=== PATIENT | female | born 1995 | race Caucasian/White ===

== ENCOUNTER 2018-09-04 15:08 | Inpatient (IN) | payer MEDICAID ==
[~2018-09-04] VITALS: Ht 160 cm; Wt 86.6 kg
[2018-09-04 15:20] VITALS: BP 119/58; PULSE 72; RESP 18; Ht 160 cm; Wt 86.6 kg
[2018-09-04] MEDS ORDERED: PREN-99 PO (15:23)
[2018-09-04] MEDS ORDERED: TERBUTALINE 1 ML ONE (15:44)
[2018-09-04] MEDS ORDERED: TERBUTALINE 1 MG/ML INJ SC STA (15:46)
[2018-09-04] MEDS: LACTATED RINGER'S 1,000 ML IV SCH ×2 (16:03→21:40)
[2018-09-04] MEDS ORDERED: TERBUTALINE 1 MG/ML INJ SC ONE (17:30)
--- NOTE | 2018-09-04 18:33 | HP ---
Date/Time of Note Date/Time of Note DATE: 09/04/18 TIME: 18:31 OB - History Hx of Present Free Text/Dictation 23-year-old female 3 para 1 Ab1 at 34 weeks and 1 day gestation admitted complaining of uterine contractions started in a.m. Estimated Due Date: Oct 15, 2018 : 3 Para: 1 Spontaneous : 1 Care: Good Care Ultrasounds: Normal mid trimester US Obstetrical Complications: None Medical Complications: None Past Family/Social History * Past Medical, Surgical, Family and Obstetric Histories reviewed from chart. OB Admission Exam Vital Signs Vital Signs Vital Signs Date Temp Pulse Resp B/P (MAP) Pulse Ox O2 O2 Flow FiO2 Time Delivery Rate 09/04/18 98.5 72 18 119/58 Room Air 15:20 (78) Physical Exam HEENT: WNL Heart: Rhythm Normal Lungs: Clear, Equal Abdomen: WNL Extremities: Normal Reflexes: Normal Cervical Dilatation: Fingertip Effacement: 0% Station: -3 Membranes: Intact Heart Rate: 140's Accelerations: Accelerations Present Decelerations: No Decelerations Varibility: Marked Contractions on Admission: < 5 Minutes Apart Date/Time Contractions Began: A.m. 09/04/2018 Frequency of Contractions: Every 3-5 minutes Duration: Over 1 minute Intensity: Mild Last 72 hours Lab Results CBC & BMP 09/04/18 15:55 OB Assessment/Plan Reason for admission: labor Other Assessment: contractions at 34 weeks and 1 Other plan: Start nifedipine and continue to observe patient Steroids will be provided TIA VELOZ MD Sep 04, 2018 18:33
[2018-09-04] MEDS ORDERED: LACTATED RINGER'S 1,000 ML IV SCH (18:44)
[2018-09-04] MEDS ORDERED: BETAMET NA PHOS/AC(6 MG/ML) 2 ML INJ SYG IM ONE (19:00)
[2018-09-04] MEDS ORDERED: DEXAMETHASONE 4 MG/ML 5 ML INJ IM SCH (19:00)
[2018-09-04] MEDS: NIFEdipine 10 MG CAP PO SCH (19:04)
[2018-09-04] MEDS ORDERED: ACETAMINOPHEN 325 MG TAB PO PRN (19:30)
[2018-09-04] MEDS ORDERED: AL HYDROX/MG HYDROX/SIMETH 30 ML CUP PO PRN (19:30)
--- NOTE | 2018-09-04 21:27 | TRIAGE ---
OB Triage Datetime Report Generated by CPN: 09/04/2018 21:27 Datetime: 09/04/2018 20:53 Monitor Mode: External Quality: Mild Pattern: Normal: <= 5 Contractions in 10 Minutes Resting Tone [place]: Relaxed Heart Rate FHR Baseline Rate: 150 Monitor Mode: External US FHR Baseline Changes: No Baseline Change Variability: Moderate 6-25 bpm Accelerations: 15X15 Decelerations: Variable Category: Category II Datetime: 09/04/2018 20:08 Stage of : OB Triage Vaginal Exam Dilatation (cms): 0.0 Effacement (%): 30 Station: -2 Exam By: Peter Geiger Membrane Status: Intact Vaginal Bleeding: None Cervix, Consistency: Moderate Cervix, Position: Posterior Datetime: 09/04/2018 19:54 Stage of : OB Triage Heart Rate FHR Baseline Rate: 150 Monitor Mode: External US Datetime: 09/04/2018 19:30 Stage of : OB Triage Maternal Assessment Level of Consciousness: Fully Conscious Headache: Denies Blurred Vision: No Nausea/Vomiting: Denies RUQ Epigastric Pain: Denies Facial Edema: None Labor Evaluation Frequency: 2-10 Monitor Mode: External Duration (sec)2399: 20-60 Quality: Mild Pattern: Normal: <= 5 Contractions in 10 Minutes Resting Tone [place]: Relaxed Heart Rate FHR Baseline Rate: 140 Monitor Mode: External US FHR Baseline Changes: No Baseline Change Variability: Moderate 6-25 bpm Accelerations: 15X15 Decelerations: None Category: Category I Pain Assessment Pain Scale: 4 Pain Presence: Intermittent Pain Type: Cramping Pain Location: Abdomen Datetime: 09/04/2018 18:42 Stage of : OB Triage Datetime: 09/04/2018 17:12 Labor Evaluation Frequency: 5-6 Monitor Mode: External Quality: Mild Pattern: Normal: <= 5 Contractions in 10 Minutes Resting Tone [place]: Relaxed Heart Rate FHR Baseline Rate: 125 Monitor Mode: External US Variability: Moderate 6-25 bpm Accelerations: 10X10 Decelerations: None Category: Category I Pain Assessment Pain Scale: 3 Pain Presence: Intermittent Pain Type: Cramping Pain Location: Perineum Pain Goal: 3 Pain Relief Measures: Comfort Measures Datetime: 09/04/2018 16:09 Labor Evaluation Frequency: 5-6 Monitor Mode: External Duration (sec)2399: 50-60 Quality: Mild Pattern: Normal: <= 5 Contractions in 10 Minutes Resting Tone [place]: Relaxed Heart Rate FHR Baseline Rate: 125 Monitor Mode: External US Variability: Moderate 6-25 bpm Accelerations: 10X10 Decelerations: None Category: Category I Pain Assessment Pain Scale: 5 Pain Presence: Intermittent Pain Type: Cramping Pain Goal: 3 Pain Relief Measures: Comfort Measures Datetime: 09/04/2018 15:27 Stage of : OB Triage Assessment Type: Triage Maternal Assessment Level of Consciousness: Fully Conscious DTR's/Clonus: DTRs 2+; No Clonus Headache: Denies Blurred Vision: No Respiratory Effort: Unlabored; Regular Rhythm; Equal Expansion Breath Sounds, Left: Clear and Equal Breath Sounds, Right: Clear and Equal Nausea/Vomiting: Denies RUQ Epigastric Pain: Denies Lower Extremities Edema: None Degree: None Upper Extremities Edema: None Degree: None Facial Edema: None Temperature Route: Oral Fall Risk Assessment History of Falling: (0) No Secondary Diagnosis: (0) No Ambulatory Aid: (0) Bedrest/Nurse Assist IV Therapy: (0) No Gait: (0) Normal/Bedrest/Immobile Mental Status: (0) Oriented to Own Ability Fall Score: 0 Fall Risk Score Definition: No Risk: No action required Labor Evaluation Frequency: x3 Monitor Mode: External Duration (sec)2399: 40-60 Quality: Mild Resting Tone [place]: Relaxed Heart Rate FHR Baseline Rate: 130 Monitor Mode: External US FHR Baseline Changes: No Baseline Change Variability: Moderate 6-25 bpm Accelerations: 15X15 Decelerations: None Category: Category I Pain Assessment Pain Scale: 7 Pain Presence: Intermittent Pain Type: Cramping Pain Location: Abdomen Datetime: 09/04/2018 15:26 EGA: 34.1 Datetime: 09/04/2018 15:24 Time of Arrival: 09/04/2018 15:00 Arrived By: Ambulatory Arrived From: Dr. Marcelino Chief Complaint: UCs from 0800 am Movement: Present Contractions: Regular Time Contractions Began: 09/04/2018 08:00 Contractions: 2-4/hour Rupture of Membranes: Denies Vaginal Bleeding: None Vaginal Discharge: Denies Recent Sexual Intercouse: Denies Abdominal Trauma: Not Applicable Patient Complaints: Contractions; Cramping Time Provider Notified: 09/04/2018 15:40 Provider Notified: Dr Poon Initial Plan: HERNANDEZ
[2018-09-04] MEDS: DEXAMETHASONE 4 MG/ML 5 ML INJ IM SCH (23:02)
[2018-09-05] MEDS: NIFEdipine 10 MG CAP PO SCH ×5 (00:46→23:29)
[2018-09-05] MEDS: LACTATED RINGER'S 1,000 ML IV SCH ×3 (05:44→22:59)
[2018-09-05] MEDS: PRENATAL VITAMIN PO SCH (10:35)
[2018-09-05] MEDS: FERROUS SULFATE (EC) 325 MG TAB PO SCH (10:35)
[2018-09-05] MEDS: DEXAMETHASONE 4 MG/ML 5 ML INJ IM SCH ×2 (11:29→23:01)
--- NOTE | 2018-09-05 15:40 | DS ---
Date/Time of Note Date/Time of Note DATE: 09/05/18 TIME: 15:38 Obstetrical Discharge Record Final Diagnosis Final Diagnosis: not delivered Other Final Diagnosis contractions at 34+ week Complications Tocolytics: Terbutaline, Other (Nifedipine) Condition on Discharge Physical Assessment Last Vitals: See nurse's note Voiding: Yes Bowel Movement: Yes Breast: Soft, non-tender, Filling Fundus: Other () Abdomen and Incision: Abdomen is gravid fundal height is 34 heart tones reactive On electronic monitoring no uterine contractions seen Calf Tenderness: No Patient Condition: Good (Patient is awaiting completion of steroid doses and will be discharged following completion) TIA VELOZ MD Sep 05, 2018 15:40
--- NOTE | 2018-09-05 15:42 | PD.PPDC ---
[employer] Discharge Instruction Provider Information Physician Information 23-year-old female with admitted for contractions at 34 weeks which was tocolyse using terbutaline and nifedipine Diagnosis [id number] Final Diagnosis: Afhqx0s contractions Condition [id number] Patient Condition: Cwuho0i Good (Patient is awaiting completion of steroid doses and will be discharged following completion) Diet [id number] Diet: Qhtin0w Resume Regular Diet Activity/Restrictions [id number] Activity: Ymald2r Bedrest May Shower [id number] Restrictions: Icicw0y No Exercising Nothing in the Vagina Follow-up Follow-up with Physician: 2, 3, Day/Days (In clinic) Return to clinic for Comment: Pelvic and bedrest until delivery [id number] Surgical Instructions: Miguel Incisional Drainage Incisional Redness TIA VELOZ MD Sep 05, 2018 15:42
[2018-09-05] MEDS ORDERED: NIFE10CA PO (15:43)
[2018-09-05] MEDS ORDERED: BETAMET NA PHOS/AC(6 MG/ML) 2 ML INJ SYG IM ONE (19:00)
[2018-09-06] MEDS: NIFEdipine 10 MG CAP PO SCH ×2 (05:36→11:23)
[2018-09-06] MEDS: LACTATED RINGER'S 1,000 ML IV SCH (07:16)
[2018-09-06] MEDS: FERROUS SULFATE (EC) 325 MG TAB PO SCH (08:37)
[2018-09-06] MEDS: PRENATAL VITAMIN PO SCH (08:37)
[2018-09-06] MEDS: DEXAMETHASONE 4 MG/ML 5 ML INJ IM SCH (11:45)
== END 2018-09-06 16:20 | disposition home or self-care (01) | DRG 833 ==
LOC: OBT 15:08 → L-D 15:09 → OBT 18:40 → L-D 18:40 → PP1 21:18
PROVIDERS: ADMIT Obstetrics & Gynecology; ATTEND Obstetrics & Gynecology
PROC: 4A1HXCZ Monitoring of Products of Conception, Cardiac Rate, External Approach (ICD-10-PCS; principal; 2018-09-04)
DX: O60.03 Preterm labor without delivery, third trimester (principal); Z3A.34 34 weeks gestation of pregnancy
CPT/HCPCS: 76818; 81001; 85025; 87086; 96360; 96361; 96372; G0463; J1100; J3105; J7120

== ENCOUNTER 2018-09-12 23:40 | Outpatient (CLI) | payer MEDICAID ==
[~2018-09-12] VITALS: Ht 160 cm; Wt 87.8 kg
[~2018-09-12 23:40] MED LIST: NIFE10CA PO; PREN-99 PO
[2018-09-12 23:46] VITALS: BP 116/64; PULSE 96; RESP 18; Ht 160 cm; Wt 87.8 kg
[2018-09-12] MEDS ORDERED: CITRACAL PO (23:53)
[2018-09-13] MEDS ORDERED: LACTATED RINGER'S 1,000 ML IV ONE (01:00)
[2018-09-13] MEDS ORDERED: TERBUTALINE 1 MG/ML INJ SC ONE (01:00)
[2018-09-13] MEDS ORDERED: LACTATED RINGER'S 1,000 ML IV SCH (02:00)
--- NOTE | 2018-09-13 04:58 | PN ---
Triage Information Date/Time September 13, 2018 Reason for visit: Uterine contractions Weeks of Gestation 35w 4d /Para 3/1 Diabetes: none Hypertention: none Additional information Pt has been on Procardia 10 mg q 6 hours x 1 week. She came in as this time it did not seem to help. PMHx: none. PSHx: none. NKDA Objective Vital Signs Date Temp Pulse Resp B/P (MAP) Pulse Ox O2 O2 Flow FiO2 Time Delivery Rate 09/12/18 98.2 96 18 116/64 Room Air 23:46 (81) Intake and Output 09/12/18 09/12/18 09/13/18 1515:00 23:00 07:00 IntakeIntake Total 1000 ml BalanceBalance 1000 ml Heart Rate: 150's Heart Rate Comments Accels to 170 BPM. No decels. Contractions: 6-10 Minutes Apart Exam 40%/closed/-2 Results/Medications Result Diagram: 09/13/18 0110 Results 24 hrs Laboratory Tests Test 09/12/18 23:35 09/13/18 01:10 Urine Color YELLOW Urine Clarity SLIGHTLY CLOUDY A Urine pH 6.0 Urine Specific [place] 1.015 Urine Ketones NEGATIVE Urine Nitrite NEGATIVE Urine Bilirubin NEGATIVE Urine Urobilinogen NEGATIVE Urine Leukocyte Esterase 1+ H Urine Microscopic RBC 1 Urine Microscopic WBC 2 Urine Squamous Epithelial Cells FEW Urine Bacteria FEW A Urine Mucus FEW A Urine Hemoglobin NEGATIVE Urine Glucose NEGATIVE Urine Total Protein NEGATIVE White Blood Count 8.1 Red Blood Count 3.81 L Hemoglobin 11.3 L Hematocrit 34.1 L Mean Corpuscular Volume 89.5 Mean Corpuscular Hemoglobin 29.7 Mean Corpuscular Hemoglobin Concent 33.1 Red Cell Distribution Width 12.5 Platelet Count 179 Mean Platelet Volume 11.5 H Immature Granulocytes % 0.700 H Neutrophils % 62.9 Lymphocytes % 28.3 Monocytes % 5.8 Eosinophils % 1.7 Basophils % 0.6 Nucleated Red Blood Cells % 0.0 Immature Granulocytes # 0.060 H Neutrophils # 5.1 Lymphocytes # 2.3 Monocytes # 0.5 Eosinophils # 0.1 Basophils # 0.1 Nucleated Red Blood Cells # 0.0 Medications Current Medications Lactated Ringer's 1,000 ml @ 125 mls/hr Q8H IV Last administered on 09/13/18at 03:36; Admin Dose 125 MLS/HR; Start 09/13/18 at 02:00 Imaging Results BPP 8/8 with JOSE LUIS of 11.6 cm. VTX. Disposition: Discharge Assessment/Plan A: IUP at 35w 4d. Contractions. P: IV hydration and one dose of terbutaline stopped her contractions and the pt feels much better. Pt instructed that she can take 20 mg of the Procardia if neccesary. PT d/c'ed home. SERGIO HALE MD Sep 13, 2018 04:54
--- NOTE | 2018-09-13 06:50 | TRIAGE ---
OB Triage Datetime Report Generated by CPN: 09/13/2018 06:49 Datetime: 09/13/2018 04:03 Monitor Mode: External US Datetime: 09/13/2018 01:16 Stage of : OB Triage Monitor Mode: External Quality: Mild Pattern: Normal: <= 5 Contractions in 10 Minutes Resting Tone [place]: Relaxed Heart Rate FHR Baseline Rate: 155 Monitor Mode: External US FHR Baseline Changes: No Baseline Change Variability: Moderate 6-25 bpm Accelerations: 15X15 Decelerations: None Category: Category I Datetime: 09/13/2018 00:30 Stage of : OB Triage Datetime: 09/13/2018 00:28 Stage of : OB Triage Labor Evaluation Frequency: q20 Monitor Mode: External Quality: Mild Pattern: Normal: <= 5 Contractions in 10 Minutes Resting Tone [place]: Relaxed Contraction Comments: irrit noted Heart Rate FHR Baseline Rate: 150 Monitor Mode: External US FHR Baseline Changes: No Baseline Change Variability: Moderate 6-25 bpm Accelerations: 15X15 Decelerations: None Category: Category I Vaginal Exam Dilatation (cms): 0.0 Effacement (%): 40 Station: -2 Exam By: Peter Geiger Membrane Status: Intact Vaginal Bleeding: None Cervix, Consistency: Moderate Cervix, Position: Posterior Presentation 'A': Cephalic Datetime: 09/12/2018 23:46 Stage of : OB Triage Assessment Type: Triage Maternal Assessment Level of Consciousness: Fully Conscious DTR's/Clonus: DTRs 2+; No Clonus Headache: Denies Blurred Vision: No Respiratory Effort: Unlabored; Regular Rhythm; Equal Expansion Breath Sounds, Left: Clear and Equal Breath Sounds, Right: Clear and Equal Nausea/Vomiting: Denies RUQ Epigastric Pain: Denies Lower Extremities Edema: None Degree: None Upper Extremities Edema: None Degree: None Facial Edema: None Temperature Route: Oral Fall Risk Assessment History of Falling: (0) No Secondary Diagnosis: (0) No Ambulatory Aid: (0) Bedrest/Nurse Assist IV Therapy: (0) No Gait: (0) Normal/Bedrest/Immobile Mental Status: (0) Oriented to Own Ability Fall Score: 0 Fall Risk Score Definition: No Risk: No action required Pain Assessment Pain Scale: 7 Pain Presence: Intermittent Pain Type: Contraction Pain Location: Abdomen; Back Pain Relief Measures: Comfort Measures Datetime: 09/12/2018 23:45 Time of Arrival: 09/12/2018 23:33 EGA: 35.3 Arrived By: Ambulatory Arrived From: Home Chief Complaint: UC'S [id number] SINCE 2099 Movement: Present Contractions: Occasional Time Contractions Began: 09/12/2018 21:00 Rupture of Membranes: Denies Vaginal Bleeding: None Vaginal Discharge: Denies Recent Sexual Intercouse: Denies Abdominal Trauma: Not Applicable Patient Complaints: Contractions Time Provider Notified: 09/13/2018 00:30 Provider Notified: Dr Cleve Initial Plan: VS, EFM Datetime: 09/12/2018 23:44 Stage of : OB Triage Monitor Mode: External Monitor Mode: External US Comments: MONITORS APPLIED FHT AUDIBLE AT 145-150BPM Datetime: 09/06/2018 11:04 Stage of : Antepartum Maternal Assessment Level of Consciousness: Fully Conscious Headache: Denies Nausea/Vomiting: Denies RUQ Epigastric Pain: Denies Labor Evaluation Frequency: 3/hr Monitor Mode: External Duration (sec)2399: 90-300 Quality: Moderate Resting Tone [place]: Relaxed Heart Rate FHR Baseline Rate: 125 Monitor Mode: External US Variability: Moderate 6-25 bpm Accelerations: 15X15 Decelerations: None Vaginal Bleeding: None Datetime: 09/06/2018 09:33 Maternal Assessment Level of Consciousness: Fully Conscious Headache: Denies Blurred Vision: No Respiratory Effort: Unlabored Nausea/Vomiting: Denies RUQ Epigastric Pain: Denies Monitor Mode: External Resting Tone [place]: Relaxed Membrane Status: Intact Datetime: 09/06/2018 08:42 Maternal Assessment Level of Consciousness: Fully Conscious Headache: Denies Blurred Vision: No Respiratory Effort: Unlabored Nausea/Vomiting: Denies RUQ Epigastric Pain: Denies Monitor Mode: External Resting Tone [place]: Relaxed Pain Assessment Pain Scale: 0 Pain Presence: None/Denies Datetime: 09/06/2018 08:00 Labor Evaluation Frequency: irregular Monitor Mode: External Resting Tone [place]: Relaxed Heart Rate FHR Baseline Rate: 135 Monitor Mode: External US Variability: Moderate 6-25 bpm Datetime: 09/06/2018 07:51 Respiratory Effort: Unlabored Pain Presence: None/Denies Datetime: 09/06/2018 07:00 Stage of : Antepartum Labor Evaluation Frequency: irregular Monitor Mode: External Pattern: Normal: <= 5 Contractions in 10 Minutes Resting Tone [place]: Relaxed Heart Rate FHR Baseline Rate: 135 Monitor Mode: External US Variability: Moderate 6-25 bpm Accelerations: 15X15 Decelerations: None Category: Category I Datetime: 09/06/2018 06:20 Assessment Type: Ongoing Assessment Datetime: 09/06/2018 06:17 Stage of : Antepartum Labor Evaluation Frequency: irregular Monitor Mode: External Pattern: Normal: <= 5 Contractions in 10 Minutes Resting Tone [place]: Relaxed Heart Rate FHR Baseline Rate: 130 Monitor Mode: External US Variability: Moderate 6-25 bpm Accelerations: 15X15 Decelerations: None Category: Category I Datetime: 09/06/2018 05:45 Comments: occassional loss of contact d/t patient's movement. Datetime: 09/06/2018 05:34 Stage of : Antepartum Temperature Route: Oral Datetime: 09/06/2018 05:30 Stage of : Antepartum Labor Evaluation Frequency: irregular Monitor Mode: External Pattern: Normal: <= 5 Contractions in 10 Minutes Resting Tone [place]: Relaxed Heart Rate FHR Baseline Rate: 125 Monitor Mode: External US Variability: Moderate 6-25 bpm Accelerations: 15X15 Decelerations: None Category: Category I Datetime: 09/06/2018 04:30 Stage of : Antepartum Labor Evaluation Frequency: irregular Monitor Mode: External Pattern: Normal: <= 5 Contractions in 10 Minutes Resting Tone [place]: Relaxed Heart Rate FHR Baseline Rate: 125 Monitor Mode: External US Variability: Moderate 6-25 bpm Accelerations: 15X15 Decelerations: None Category: Category I Datetime: 09/06/2018 03:20 Stage of : Antepartum Labor Evaluation Frequency: irregular Monitor Mode: External Pattern: Normal: <= 5 Contractions in 10 Minutes Resting Tone [place]: Relaxed Heart Rate FHR Baseline Rate: 145 Monitor Mode: External US Variability: Moderate 6-25 bpm Accelerations: 15X15 Decelerations: None Category: Category I Datetime: 09/06/2018 02:40 Monitor Mode: External Monitor Mode: External US Comments: Occassional loss of contact/picking up maternal heart rate Datetime: 09/06/2018 02:10 Stage of : Antepartum Labor Evaluation Frequency: occassional Monitor Mode: External Pattern: Normal: <= 5 Contractions in 10 Minutes Resting Tone [place]: Relaxed Heart Rate FHR Baseline Rate: 145 Monitor Mode: External US Variability: Moderate 6-25 bpm Accelerations: 15X15 Decelerations: None Category: Category I Datetime: 09/06/2018 01:31 Stage of : Antepartum Labor Evaluation Frequency: irregular Monitor Mode: External Pattern: Normal: <= 5 Contractions in 10 Minutes Resting Tone [place]: Relaxed Heart Rate FHR Baseline Rate: 150 Monitor Mode: External US Variability: Moderate 6-25 bpm Accelerations: 15X15 Decelerations: Variable Category: Category II Comments: decel HR down to 90 up to 3 minutes Datetime: 09/06/2018 01:15 Stage of : Antepartum Labor Evaluation Frequency: occassional Monitor Mode: External Pattern: Normal: <= 5 Contractions in 10 Minutes Resting Tone [place]: Relaxed Heart Rate FHR Baseline Rate: 140 Monitor Mode: External US Variability: Moderate 6-25 bpm Accelerations: 15X15 Decelerations: None Category: Category I Comments: occassional loss of contact Datetime: 09/06/2018 00:30 Stage of : Antepartum Labor Evaluation Frequency: occassional Monitor Mode: External Pattern: Normal: <= 5 Contractions in 10 Minutes Resting Tone [place]: Relaxed Heart Rate FHR Baseline Rate: 140 Monitor Mode: External US Variability: Moderate 6-25 bpm Accelerations: 15X15 Decelerations: None Category: Category I Datetime: 09/05/2018 23:28 Stage of : Antepartum Temperature Route: Oral Datetime: 09/05/2018 23:11 Monitor Mode: External Monitor Mode: External US Datetime: 09/05/2018 23:10 Stage of : Antepartum Labor Evaluation Frequency: occassional Monitor Mode: External Pattern: Normal: <= 5 Contractions in 10 Minutes Resting Tone [place]: Relaxed Monitor Mode: External US Variability: Moderate 6-25 bpm Accelerations: 15X15 Decelerations: None Category: Category I Comments: FHR: 135, unable to assess baseline d/t loss of contact Datetime: 09/05/2018 23:06 Stage of : Antepartum Temperature Route: Oral Datetime: 09/05/2018 22:56 Monitor Mode: External Monitor Mode: External US Datetime: 09/05/2018 22:42 Comments: loss of contact/ picking up maternal heart rate. Datetime: 09/05/2018 22:10 Stage of : Antepartum Labor Evaluation Frequency: occassional Monitor Mode: External Pattern: Normal: <= 5 Contractions in 10 Minutes Resting Tone [place]: Relaxed Heart Rate FHR Baseline Rate: 135 Monitor Mode: External US Variability: Moderate 6-25 bpm Accelerations: 15X15 Decelerations: None Category: Category I Comments: loss of contact d/t patient's change in position Datetime: 09/05/2018 21:20 Stage of : Antepartum Labor Evaluation Frequency: occassional Monitor Mode: External Pattern: Normal: <= 5 Contractions in 10 Minutes Resting Tone [place]: Relaxed Heart Rate FHR Baseline Rate: 135 Monitor Mode: External US Variability: Moderate 6-25 bpm Accelerations: 15X15 Decelerations: None Category: Category I Datetime: 09/05/2018 20:20 Labor Evaluation Frequency: occassional Monitor Mode: External Pattern: Normal: <= 5 Contractions in 10 Minutes Resting Tone [place]: Relaxed Heart Rate FHR Baseline Rate: 135 Monitor Mode: External US Variability: Moderate 6-25 bpm Accelerations: 15X15 Decelerations: None Category: Category I Datetime: 09/05/2018 20:03 Monitor Mode: External Monitor Mode: External US Datetime: 09/05/2018 19:47 Monitor Mode: External Monitor Mode: External US Datetime: 09/05/2018 19:45 Stage of : Antepartum Assessment Type: Ongoing Assessment Maternal Assessment Level of Consciousness: Fully Conscious DTR's/Clonus: DTRs 2+; No Clonus Headache: Denies Blurred Vision: No Respiratory Effort: Unlabored; Regular Rhythm; Equal Expansion Breath Sounds, Left: Clear and Equal Breath Sounds, Right: Clear and Equal Nausea/Vomiting: Denies RUQ Epigastric Pain: Denies Facial Edema: None Temperature Route: Oral Fall Risk Assessment History of Falling: (0) No Secondary Diagnosis: (0) No Ambulatory Aid: (0) Bedrest/Nurse Assist IV Therapy: (20) Yes Gait: (0) Normal/Bedrest/Immobile Mental Status: (0) Oriented to Own Ability Fall Score: 20 Fall Risk Score Definition: No Risk: No action required Datetime: 09/05/2018 19:20 Stage of : Antepartum Datetime: 09/05/2018 18:56 Labor Evaluation Frequency: occasional Monitor Mode: External Duration (sec)2399: variable Resting Tone [place]: Relaxed Heart Rate FHR Baseline Rate: 130 Monitor Mode: External US FHR Baseline Changes: No Baseline Change Variability: Moderate 6-25 bpm Accelerations: 15X15 Decelerations: None Category: Category I Pain Presence: None/Denies Datetime: 09/05/2018 17:43 Labor Evaluation Frequency: occasional Monitor Mode: External Quality: Mild Resting Tone [place]: Relaxed Heart Rate FHR Baseline Rate: 130 FHR Baseline Changes: No Baseline Change Variability: Moderate 6-25 bpm Accelerations: 15X15 Decelerations: None Category: Category I Pain Presence: None/Denies Datetime: 09/05/2018 16:52 Labor Evaluation Frequency: occasional Monitor Mode: External Quality: Mild Resting Tone [place]: Relaxed Heart Rate FHR Baseline Rate: 130 Monitor Mode: External US FHR Baseline Changes: No Baseline Change Variability: Moderate 6-25 bpm Accelerations: 15X15 Decelerations: None Category: Category I Datetime: 09/05/2018 16:41 Labor Evaluation Frequency: 5/hr Monitor Mode: External Duration (sec)2399: 40-120 Quality: Mild Resting Tone [place]: Relaxed Heart Rate FHR Baseline Rate: 135 Monitor Mode: External US FHR Baseline Changes: No Baseline Change Variability: Moderate 6-25 bpm Accelerations: 15X15 Decelerations: None Category: Category I Datetime: 09/05/2018 15:56 Pain Assessment Comments: back pain, pressure occasionally Datetime: 09/05/2018 15:40 Labor Evaluation Frequency: occasional irritability Monitor Mode: External Resting Tone [place]: Relaxed Heart Rate FHR Baseline Rate: 130 Monitor Mode: External US FHR Baseline Changes: No Baseline Change Variability: Moderate 6-25 bpm Accelerations: 15X15 Decelerations: None Category: Category I Datetime: 09/05/2018 15:07 Labor Evaluation Frequency: 1 Monitor Mode: External Duration (sec)2399: 60 Quality: Mild Resting Tone [place]: Relaxed Monitor Mode: External US FHR Baseline Changes: No Baseline Change Variability: Moderate 6-25 bpm Accelerations: 15X15 Decelerations: None Category: Category I Datetime: 09/05/2018 14:59 Monitor Mode: External US Datetime: 09/05/2018 13:58 Labor Evaluation Frequency: 0 Monitor Mode: External Resting Tone [place]: Relaxed Heart Rate FHR Baseline Rate: 135 Monitor Mode: External US FHR Baseline Changes: No Baseline Change Variability: Moderate 6-25 bpm Accelerations: 15X15 Decelerations: None Category: Category I Datetime: 09/05/2018 13:27 Labor Evaluation Frequency: 0 Monitor Mode: External Resting Tone [place]: Relaxed Heart Rate FHR Baseline Rate: 130 Monitor Mode: External US FHR Baseline Changes: No Baseline Change Variability: Moderate 6-25 bpm Accelerations: 15X15 Decelerations: None Category: Category I Datetime: 09/05/2018 10:07 Labor Evaluation Frequency: mvt noted Monitor Mode: External Resting Tone [place]: Relaxed Heart Rate FHR Baseline Rate: 130 Monitor Mode: External US FHR Baseline Changes: No Baseline Change Variability: Moderate 6-25 bpm Accelerations: 15X15 Decelerations: None; Variable Category: Category I Datetime: 09/05/2018 09:22 Labor Evaluation Frequency: occasional irritability Monitor Mode: External Resting Tone [place]: Relaxed Heart Rate FHR Baseline Rate: 135 FHR Baseline Changes: No Baseline Change Variability: Moderate 6-25 bpm Accelerations: 15X15 Decelerations: None Category: Category I Datetime: 09/05/2018 07:58 Assessment Type: Ongoing Assessment Maternal Assessment Level of Consciousness: Fully Conscious DTR's/Clonus: DTRs 2+; No Clonus Headache: Denies Blurred Vision: No Respiratory Effort: Unlabored; Regular Rhythm; Equal Expansion Breath Sounds, Left: Clear and Equal Breath Sounds, Right: Clear and Equal Nausea/Vomiting: Denies RUQ Epigastric Pain: Denies Facial Edema: None Fall Risk Assessment History of Falling: (0) No Secondary Diagnosis: (0) No Ambulatory Aid: (0) Bedrest/Nurse Assist IV Therapy: (20) Yes Gait: (0) Normal/Bedrest/Immobile Mental Status: (0) Oriented to Own Ability Fall Score: 20 Fall Risk Score Definition: No Risk: No action required Pain Presence: None/Denies Datetime: 09/05/2018 07:54 Labor Evaluation Frequency: 0 Monitor Mode: External Resting Tone [place]: Relaxed Heart Rate FHR Baseline Rate: 140 Monitor Mode: External US FHR Baseline Changes: No Baseline Change Variability: Moderate 6-25 bpm Accelerations: 15X15 Decelerations: None Category: Category I Datetime: 09/05/2018 06:30 Labor Evaluation Frequency: 0 Monitor Mode: External Duration (sec)2399: denies Resting Tone [place]: Relaxed Heart Rate FHR Baseline Rate: 140 Monitor Mode: External US Variability: Moderate 6-25 bpm Accelerations: 15X15 Decelerations: None Category: Category I Pain Presence: None/Denies Datetime: 09/05/2018 05:41 Maternal Assessment Level of Consciousness: Fully Conscious DTR's/Clonus: DTRs 2+ Headache: Denies Blurred Vision: No Temperature Route: Oral Datetime: 09/05/2018 05:30 Labor Evaluation Frequency: x1 Monitor Mode: External Duration (sec)2399: 120 Quality: Mild Resting Tone [place]: Relaxed Heart Rate FHR Baseline Rate: 140 Monitor Mode: External US Variability: Moderate 6-25 bpm Accelerations: 15X15 Decelerations: None Category: Category I Pain Presence: None/Denies Datetime: 09/05/2018 04:30 Labor Evaluation Frequency: x2 Monitor Mode: External Duration (sec)2399: 60-80 Quality: Mild Resting Tone [place]: Relaxed Heart Rate FHR Baseline Rate: 140 Monitor Mode: External US Variability: Moderate 6-25 bpm Accelerations: 15X15 Decelerations: None Category: Category I Datetime: 09/05/2018 03:30 Heart Rate FHR Baseline Rate: 140 Monitor Mode: External US Variability: Moderate 6-25 bpm Accelerations: 15X15 Decelerations: None Category: Category I Pain Presence: None/Denies Datetime: 09/05/2018 02:20 Labor Evaluation Frequency: IRREGULAR Monitor Mode: External Duration (sec)2399: 40-70 Quality: Mild Resting Tone [place]: Relaxed Heart Rate FHR Baseline Rate: 145 Monitor Mode: External US Variability: Moderate 6-25 bpm Accelerations: 15X15 Decelerations: None Category: Category I Pain Assessment Pain Scale: 3 Pain Presence: Intermittent Pain Type: Contraction Pain Location: Abdomen Pain Goal: 3 Pain Relief Measures: Comfort Measures Datetime: 09/05/2018 01:20 Labor Evaluation Frequency: OCCASIONAL Monitor Mode: External Duration (sec)2399: 40-50 Quality: Mild Resting Tone [place]: Relaxed Heart Rate FHR Baseline Rate: 150 Monitor Mode: External US Variability: Moderate 6-25 bpm Accelerations: 10X10 Decelerations: None Category: Category I Pain Assessment Pain Scale: 3 Pain Presence: Intermittent Pain Type: Contraction Pain Location: Abdomen Pain Goal: 3 Pain Relief Measures: Comfort Measures Datetime: 09/05/2018 00:20 Labor Evaluation Frequency: OCCASIONAL Monitor Mode: External Duration (sec)2399: 40-50 Quality: Mild Resting Tone [place]: Relaxed Heart Rate FHR Baseline Rate: 155 Monitor Mode: External US Variability: Moderate 6-25 bpm Accelerations: 15X15 Decelerations: Variable Category: Category II Pain Assessment Pain Scale: 3 Pain Presence: Intermittent Pain Type: Contraction Pain Location: Abdomen Pain Goal: 3 Pain Relief Measures: Comfort Measures Datetime: 09/04/2018 23:20 Labor Evaluation Frequency: 0 Monitor Mode: External Duration (sec)2399: denies Resting Tone [place]: Relaxed Heart Rate FHR Baseline Rate: 145 Monitor Mode: External US Variability: Moderate 6-25 bpm Accelerations: 15X15 Decelerations: None Category: Category I Comments: some periods of minimal variavility noted. Pain Presence: None/Denies Datetime: 09/04/2018 22:20 Labor Evaluation Frequency: X1 Monitor Mode: External Duration (sec)2399: 70 Quality: Mild Resting Tone [place]: Relaxed Heart Rate FHR Baseline Rate: 145 Monitor Mode: External US Variability: Moderate 6-25 bpm Accelerations: 10X10 Decelerations: None Category: Category I Pain Presence: None/Denies Datetime: 09/04/2018 21:22 Stage of : Antepartum Assessment Type: Ongoing Assessment Maternal Assessment Level of Consciousness: Fully Conscious DTR's/Clonus: DTRs 2+; No Clonus Headache: Denies Blurred Vision: No Respiratory Effort: Unlabored; Regular Rhythm; Equal Expansion Breath Sounds, Left: Clear and Equal Breath Sounds, Right: Clear and Equal Nausea/Vomiting: Denies RUQ Epigastric Pain: Denies Lower Extremities Edema: None Degree: None Upper Extremities Edema: None Degree: None Facial Edema: None Temperature Route: Oral Fall Risk Assessment History of Falling: (0) No Secondary Diagnosis: (0) No Ambulatory Aid: (0) Bedrest/Nurse Assist IV Therapy: (0) No Gait: (0) Normal/Bedrest/Immobile Mental Status: (0) Oriented to Own Ability Fall Score: 0 Fall Risk Score Definition: No Risk: No action required Pain Presence: None/Denies Datetime: 09/04/2018 15:27 Fall Score: 0 Fall Risk Score Definition: No Risk: No action required Datetime: 09/04/2018 15:26 EGA: 34.1
== END 2018-09-13 05:02 | disposition home or self-care (01) ==
LOC: OBT 23:40 → L-D 23:43 → OBT 09-13 05:02
PROVIDERS: ATTEND Obstetrics & Gynecology
DX: O47.03 False labor before 37 completed weeks of gestation, third trimester (principal); Z3A.35 35 weeks gestation of pregnancy; O26.893 Other specified pregnancy related conditions, third trimester; R82.90 Unspecified abnormal findings in urine
CPT/HCPCS: 36415; 76818; 81001; 85025; 87086; 96360; 96361; 96372; J3105; J7120; Z7500; G0463

== ENCOUNTER 2018-09-23 11:11 | Outpatient (CLI) | payer MEDICAID ==
[~2018-09-23] VITALS: Ht 160 cm; Wt 88.3 kg
[~2018-09-23 11:11] MED LIST changes: +CITRACAL PO
[2018-09-23 11:30] VITALS: Ht 160 cm; Wt 88.3 kg
[2018-09-23 11:31] VITALS: BP 114/55; PULSE 73; RESP 18
--- NOTE | 2018-09-23 14:31 | TRIAGE ---
OB Triage Datetime Report Generated by CPN: 09/23/2018 14:30 Datetime: 09/23/2018 13:38 Labor Evaluation Frequency: occas Monitor Mode: External Duration (sec)2399: 50-70 Quality: Mild Pattern: Normal: <= 5 Contractions in 10 Minutes Resting Tone [place]: Relaxed Heart Rate FHR Baseline Rate: 140 Monitor Mode: External US FHR Baseline Changes: No Baseline Change Variability: Moderate 6-25 bpm Accelerations: 15X15 Decelerations: None Category: Category I Datetime: 09/23/2018 12:10 Labor Evaluation Frequency: OCCAS Monitor Mode: External Duration (sec)2399: 50-80 Quality: Mild Pattern: Normal: <= 5 Contractions in 10 Minutes Resting Tone [place]: Relaxed Heart Rate FHR Baseline Rate: 135 Monitor Mode: External US Variability: Moderate 6-25 bpm Accelerations: 15X15 Decelerations: None Category: Category I Datetime: 09/23/2018 12:01 Vaginal Exam Dilatation (cms): 0.0 Effacement (%): 0 Station: -3 Exam By: A GHUKASYAN Datetime: 09/23/2018 11:34 Assessment Type: Triage Maternal Assessment Level of Consciousness: Fully Conscious DTR's/Clonus: DTRs 2+; No Clonus Headache: Denies Blurred Vision: No Respiratory Effort: Unlabored; Regular Rhythm; Equal Expansion Breath Sounds, Left: Clear and Equal Breath Sounds, Right: Clear and Equal Nausea/Vomiting: Denies RUQ Epigastric Pain: Denies Lower Extremities Edema: None Degree: None Upper Extremities Edema: None Degree: None Facial Edema: None Fall Risk Assessment History of Falling: (0) No Secondary Diagnosis: (0) No Ambulatory Aid: (0) Bedrest/Nurse Assist IV Therapy: (0) No Gait: (0) Normal/Bedrest/Immobile Mental Status: (0) Oriented to Own Ability Fall Score: 0 Fall Risk Score Definition: No Risk: No action required Datetime: 09/23/2018 11:33 Time of Arrival: 09/23/2018 11:05 EGA: 36.6 Arrived By: Ambulatory Arrived From: Dr. Marcelino Chief Complaint: UC'S SINCE 09/22 1800 Movement: Present Contractions: Regular Time Contractions Began: 09/22/2018 18:00 Contractions: Q 10 Rupture of Membranes: Denies Vaginal Bleeding: None Vaginal Discharge: Denies Recent Sexual Intercouse: Denies Abdominal Trauma: Not Applicable Patient Complaints: Contractions; Cramping Time Provider Notified: 09/23/2018 12:04 Provider Notified: dr matos Initial Plan: NST Datetime: 09/12/2018 23:46 Fall Score: 0 Fall Risk Score Definition: No Risk: No action required Datetime: 09/12/2018 23:45 EGA: 35.3 Datetime: 09/05/2018 19:45 Fall Score: 20 Fall Risk Score Definition: No Risk: No action required Datetime: 09/05/2018 07:58 Fall Score: 20 Fall Risk Score Definition: No Risk: No action required Datetime: 09/04/2018 21:22 Fall Score: 0 Fall Risk Score Definition: No Risk: No action required Datetime: 09/04/2018 15:27 Fall Score: 0 Fall Risk Score Definition: No Risk: No action required Datetime: 09/04/2018 15:26 EGA: 34.1
--- NOTE | 2018-09-23 16:12 | PN ---
Triage Information Date/Time Reason for visit: Uterine contractions Weeks of Gestation 36 weeks and 6 days /Para 3 para 1101 Diabetes: none Hypertention: none Objective Vital Signs Date Temp Pulse Resp B/P (MAP) Pulse Ox O2 O2 Flow FiO2 Time Delivery Rate 09/23/18 98.3 73 18 114/55 Room Air 11:31 (74) Heart Rate: 140's Contractions: >10 Minutes Apart Results/Medications Imaging Results There is a single live intrauterine . cardiac activity is identified at a rate of 152 beats per minute. presentation is cephalic. Placenta is anterior grade 1 to II Biophysical profile score is as follows: Breathing 2 Movements 2 Tone 2 Fluid volume 2 Amniotic fluid index = 11.93 cm Total biophysical profile score = 8/8 IMPRESSION: Biophysical profile score = 8/8 Disposition: Discharge Assessment/Plan 23 years old with single intrauterine at 36 weeks and 6 days complaining of uterine contractions.She states good movement. She denies nausea, vomiting, shortness of breath, chest pain, headache, visual changes, vaginal bleeding or LOF. -FHR: No sign of metabolic acidosis- Category I -She has occasional uterine contractions, comfortable with those -Ultrasound performed as above -SVE performed, closed/thick/high/intact membrane, repeat exam with no cervical changes. -Symptoms and sign of labor, preeclampsia, kick count discussed with patient, she voiced understanding. All of her questions answered. -Patient was discharged home in stable condition with the appropriate discharge instructions provided. I would like patient to have close follow-up with her primary physician or outpatient clinic in 1-2 days or return to triage for worsening symptoms or any other urgent concerns. ALENA ASHRAF Sep 23, 2018 16:12
== END 2018-09-23 13:40 | disposition home or self-care (01) ==
LOC: L-D 11:11 → OBT 11:11
PROVIDERS: ATTEND Obstetrics & Gynecology
DX: O62.9 Abnormality of forces of labor, unspecified (principal); Z3A.36 36 weeks gestation of pregnancy
CPT/HCPCS: 76818; Z7500; G0463

== ENCOUNTER 2018-09-27 05:11 | Inpatient (IN) | payer MEDICAID ==
[~2018-09-27] VITALS: Ht 160 cm; Wt 88.4 kg
[~2018-09-27 05:11] MED LIST changes: -NIFE10CA PO
[2018-09-27 05:42] VITALS: BP 125/67; PULSE 69; RESP 17; Ht 160 cm; Wt 88.4 kg
[2018-09-27] MEDS ORDERED: METHYLERGONOVINE 0.2 MG INJ IM PRN ×2 (07:00→13:00)
[2018-09-27] MEDS ORDERED: MISOPROSTOL 200 MCG TAB PR PRN ×2 (07:00→13:00)
[2018-09-27] MEDS ORDERED: MINERAL OIL LIGHT 10 ML VIAL TOP PRN (07:00)
[2018-09-27] MEDS ORDERED: LIDOCAINE 1% (MPF) 30 ML INJ INJ PRN (07:00)
[2018-09-27] MEDS ORDERED: OXYTOCIN 30 UNITS/LR 500 ML IV SCH (07:00)
[2018-09-27] MEDS ORDERED: OXYTOCIN 30 UNITS/LR 500 ML IV PRN ×2 (07:00→13:00)
[2018-09-27] MEDS ORDERED: CARBOPROST 250 MCG INJ IM PRN ×2 (07:00→13:00)
[2018-09-27] MEDS ORDERED: IBUPROFEN 600 MG TAB PO PRN (07:00)
[2018-09-27] MEDS ORDERED: BUTORPHANOL 2 MG INJ IV PRN (07:00)
[2018-09-27] MEDS ORDERED: AMPICILLIN 2 GM/NS (PMX) 100 ML IV ONE (07:00)
--- NOTE | 2018-09-27 07:58 | PREAC ---
Date/Time of Note Date/Time of Note DATE: 09/27/18 TIME: 07:56 Anesthesia Eval and Record Evaluation Time Pre-Procedure Interview DATE: 09/27/18 TIME: 07:56 Age 23 Sex female NPO: 8 hrs Preoperative diagnosis labor pain Planned procedure epidural Past Medical History Past Medical History: None Surgery & Anesthesia Issues No known issue Meds Anticoagulation: No Beta Chilango within 24 hr: No Reason Beta Chilango not given: Pt. not on B-Chilango Reported Medications Calcium Citrate* (Citracal*) 950 Mg Tab, 950 MG PO DAILY, TAB 09/12/18 Vit #76/Iron,Carb/FA (Pnv 29-1 Tablet) 1 Each Tablet, 1 EACH PO DAILY, TAB 09/04/18 Discontinued Scripts Nifedipine* (Procardia*) 10 Mg Capsule, 20 MG PO Q6, #60 CAP 1 Refill Prov:TIA VELOZ MD 09/05/18 Current Medications Lactated Ringer's 1,000 ml @ 125 mls/hr Q8H IV ; Start 09/27/18 at 06:48 Ampicillin 100 ml @ 100 mls/hr ONCE ONCE IV ; Start 09/27/18 at 07:00; Stop 09/27/18 at 07:59 Ampicillin 50 ml @ 100 mls/hr Q4H IV ; Start 09/27/18 at 11:00 Butorphanol Tartrate (Stadol) 2 mg Q2H PRN IV .PAIN; Start 09/27/18 at 07:00 Lidocaine (Xylocaine 1% (Mpf)) 30 ml ONCE PRN INJ .EPISIOTOMY; Start 09/27/18 at 07:00 Oxytocin/Lactated Ringer's 500 ml @ 500 mls/hr ONCE POST IV ; Start 09/27/18 at 07:00 Oxytocin/Lactated Ringer's 500 ml @ 125 mls/hr POST IV ; Start 09/27/18 at 07:00 Ibuprofen (Motrin) 600 mg ONCE PRN PO .PAIN 1-5; Start 09/27/18 at 07:00 Oxytocin/Lactated Ringer's 500 ml @ 0 mls/hr ONCE PRN IV .VAGINAL BLEEDING; Start 09/27/18 at 07:00 Methylergonovine Maleate (Methergine) 0.2 mg ONCE PRN IM .VAGINAL BLEEDING; Start 09/27/18 at 07:00 Carboprost Tromethamine (Hemabate) 250 mcg ONCE PRN IM .VAGINAL BLEEDING; Start 09/27/18 at 07:00 Misoprostol (Cytotec) 1,000 mcg ONCE PRN AR .VAGINAL BLEEDING; Start 09/27/18 at 07:00 Mineral Oil (Muri-Lube) 10 ml ONCE PRN TOP VAGINAL DELIVERY; Start 09/27/18 at 07:00; Stop 09/27/18 at 23:45 Meds reviewed: Yes Allergies Coded Allergies: No Known Allergy (Unverified , 09/27/18) Allergies Reviewed: Yes Labs/Studies Labs Reviewed: Reviewed by anesthesiologist Result Diagram: 09/27/18 0700 Laboratory Tests 09/27/18 07:00 test: Positive Studies: ECG (n/a), CXR (n/a) Pre-procedure Exam Last vitals Vital Signs Date Temp Pulse Resp B/P (MAP) Pulse Ox O2 O2 Flow FiO2 Time Delivery Rate 09/27/18 97.9 69 17 125/67 Room Air 05:42 (86) Airway: Adequate mouth opening Mallampati: Mallampati I Teeth: Normal Lung: Normal Heart: Normal ASA Physical Status ASA physical status: 2 Emergency: None Planned Anesthetic Neuraxial: Epidural Pre-operative Attestations Prior to commencing anesthesia and surgery, the patient was re-evaluated, there was verification of: *The patient's identity *The results of appropriate recent lab work and preoperative vital signs *The above evaluation not changing prior to induction *Anesthetic plan, risk benefits, alternative and complications discussed with patient/family; questions answered; patient/family understands, accepts and wishes to proceed. OLIVER DUPONT MD Sep 27, 2018 07:58
[2018-09-27] MEDS ORDERED: FENTAnyl 2MCG/ML-ROPIV 0.2% 100 ML BAG EPI SCH (08:00)
[2018-09-27] MEDS ORDERED: NALOXONE (0.4 MG/ML) INJ IV PRN (08:00)
--- NOTE | 2018-09-27 08:22 | PAC ---
Date/Time of Note Date/Time of Note DATE: 09/27/18 TIME: 08:21 Post-Anesthesia Notes Post-Anesthesia Note Last documented vital signs Vital Signs Date Temp Pulse Resp B/P (MAP) Pulse Ox O2 O2 Flow FiO2 Time Delivery Rate 09/27/18 97.9 69 17 125/67 Room Air 08:21 (86) Activity: WNL Respiratory function: WNL Cardiovascular function: WNL Mental status: Baseline Pain reasonably controlled: Yes Hydration appropriate: Yes Nausea/Vomiting absent: No OLIVER DUPONT MD Sep 27, 2018 08:22
[2018-09-27] MEDS: LACTATED RINGER'S 1,000 ML IV SCH ×2 (08:33→08:56)
--- NOTE | 2018-09-27 10:08 | HP ---
Date/Time of Note Date/Time of Note DATE: 09/27/18 TIME: 10:05 OB - History Hx of Present Free Text/Dictation 23-year-old female 3 para 1 Ab1 at 37+ weeks gestation admitted complaining of onset of labor contractions started 2 AM every 5-10-minute Last Menstrual Period: Dec 19, 2017 Estimated Due Date: Oct 15, 2018 : 3 Para: 1 Spontaneous : 1 Care: Good Care Ultrasounds: Normal mid trimester US Obstetrical Complications: None Medical Complications: None Past Family/Social History * Past Medical, Surgical, Family and Obstetric Histories reviewed from chart. Blood Type: O+ Rubella: immune RPR/VDRL: Negative GBS Status: Unknown HBsAG: Negative OB Admission Exam Vital Signs Vital Signs Vital Signs Date Temp Pulse Resp B/P (MAP) Pulse Ox O2 O2 Flow FiO2 Time Delivery Rate 09/27/18 97.9 69 17 125/67 Room Air 05:42 (86) Physical Exam HEENT: WNL Heart: Rhythm Normal Lungs: Clear, Equal Abdomen: WNL Extremities: Normal Reflexes: Normal Cervical Dilatation: 2cm Effacement: 50% Station: -3 Membranes: Intact Heart Rate: 140's Accelerations: Accelerations Present Decelerations: No Decelerations Varibility: Marked Contractions on Admission: 6-10 Minutes Apart Date/Time Contractions Began: 09/27/2018 at 2 AM Frequency of Contractions: Every 5-10 minutes Duration: Over 1 minute Intensity: Moderate Last 72 hours Lab Results CBC & BMP 09/27/18 07:00 OB Assessment/Plan Other Assessment: 37+ weeks gestation in labor contractions Other plan: Proceed with spontaneous labor TIA VELOZ MD Sep 27, 2018 10:08
[2018-09-27] MEDS ORDERED: KETOROLAC 30 MG INJ IV STA (10:09)
--- NOTE | 2018-09-27 10:09 | LDN ---
Date/Time of Note Date/Time of Note DATE: 09/27/18 TIME: 10:08 Delivery Summary Normal spontaneous vaginal delivery of a viable over intact perineum Weeks of Gestation 37 weeks plus Placenta Delivered: Spontaneously, Intact & Complete Meconium: none Episiotomy: No Perineal laceration: 0 Anesthesia type: Epidural Estimated blood loss: 200 Sponge & Needle done & correct: Yes All needle counts correct: Yes Any foreign bodies felt in the: No Infant Delivery Information Sex Sex: female Apgars 1 Minute: 9 5 Minute: 9 Suctioning Nose & mouth suctioned at evelyn: Yes Delee suction performed: No Umbilical Cord Umbilical cord with: 3 Vessels Cord Blood was obtained: Yes Mother & Baby Disposition Disposition Mom & Baby to Maternity; Good: Yes (Mother and baby were recovered in good condition) Mom transferred to: Other (Maternity) Baby to NICU: No TIA VELOZ MD Sep 27, 2018 10:09
[2018-09-27] MEDS: OXYTOCIN 30 UNITS/LR 500 ML IV SCH ×2 (10:37→12:09)
[2018-09-27] MEDS ORDERED: AMPICILLIN 1 GM/NS (PMX) 50 ML IV SCH (11:00)
[2018-09-27 13:00] VITALS: BP 116/65; PULSE 61; RESP 18
[2018-09-27] MEDS ORDERED: BENZOCAINE 20% 56 ML SPRAY TOP PRN (13:00)
[2018-09-27] MEDS ORDERED: ZOLPIDEM 5 MG TAB PO PRN (13:00)
[2018-09-27] MEDS ORDERED: WITCH HAZEL/GLYCERIN PAD PR PRN (13:00)
[2018-09-27] MEDS ORDERED: HYDROCODONE/APAP (5/325) TAB PO PRN ×2 (13:00)
[2018-09-27] MEDS: IBUPROFEN 600 MG TAB PO SCH ×2 (13:00→17:38)
[2018-09-27] MEDS ORDERED: DIBUCAINE 1% 30 GM OINT TOP PRN (13:00)
[2018-09-27] MEDS: CEPHALEXIN 500 MG CAP PO SCH ×2 (13:38→17:37)
[2018-09-27] MEDS: LANOLIN HPA 1 PKT TOP PRN ×2 (13:39→21:29)
[2018-09-27 14:10] VITALS: BP 121/61; RESP 14
[2018-09-27 15:51] VITALS: BP 107/56; PULSE 73; RESP 18
[2018-09-27] MEDS: LACTATED RINGER'S 1,000 ML IV* SCH ×2 (17:00→19:49)
[2018-09-27 20:00] VITALS: BP 113/50; PULSE 85; RESP 17
[2018-09-27] MEDS: MAGNESIUM HYDROXIDE 30ML CUP PO SCH (21:29)
[2018-09-27] MEDS: SENNA/DOCUSATE NA (8.6MG/50MG) TAB PO SCH (21:29)
[2018-09-28] MEDS: CEPHALEXIN 500 MG CAP PO SCH ×5 (00:15→23:48)
[2018-09-28] MEDS: IBUPROFEN 600 MG TAB PO SCH ×5 (00:17→23:48)
[2018-09-28 04:00] VITALS: BP 100/59; PULSE 78; RESP 18
[2018-09-28] MEDS: LACTATED RINGER'S 1,000 ML IV* SCH (04:53)
[2018-09-28 08:20] VITALS: BP 113/59; PULSE 72; RESP 20
[2018-09-28] MEDS: MAGNESIUM HYDROXIDE 30ML CUP PO SCH ×2 (09:55→21:33)
[2018-09-28] MEDS: SENNA/DOCUSATE NA (8.6MG/50MG) TAB PO SCH ×2 (09:55→21:33)
[2018-09-28] MEDS: LANOLIN HPA 1 PKT TOP PRN (11:49)
[2018-09-28 15:30] VITALS: BP 121/75; PULSE 71; RESP 20
--- NOTE | 2018-09-28 18:49 | DS ---
Date/Time of Note Date/Time of Note Home today or next day DATE: 09/28/18 TIME: 18:48 Obstetrical Discharge Record Final Diagnosis Final Diagnosis: Term delivered Other Final Diagnosis Status post vaginal delivery Condition on Discharge Physical Assessment Last Vitals: See nurse's notes Voiding: Yes Bowel Movement: Yes Breast: Soft, non-tender, Filling Fundus: Firm Abdomen and Incision: Abdomen is soft with present bowel sounds Fundus is firm at the U Episiotomy: Perineum is clean Calf Tenderness: No Patient Condition: Good TIA VELOZ MD Sep 28, 2018 18:49
--- NOTE | 2018-09-28 18:50 | PD.PPDC ---
[employer] Discharge Instruction Provider Information Physician Information 23-year-old female had vaginal delivery Diagnosis [id number] Final Diagnosis: Rorck6v Status post vaginal delivery Condition [id number] Patient Condition: [id number] Good Activity/Restrictions [id number] Activity: [id number] Normal Activity May Shower [id number] Restrictions: Ywhly0i Nothing in the Vagina [id number] Return to Work or School: [id number] November 16, 2018 Follow-up Follow-up with Physician: 2, 4, Week/Weeks (In clinic for follow-up) Return to clinic for [id number] OB Instructions: Yimqx8p Breast Tenderness Depression Comment: Pelvic rest for 6 weeks TIA VELOZ MD Sep 28, 2018 18:50
[2018-09-28] MEDS ORDERED: IBUP-1542 PO (18:51)
[2018-09-28 19:20] VITALS: BP 111/69; PULSE 68; RESP 18
[2018-09-29 04:31] VITALS: BP 110/65; PULSE 78; RESP 20
[2018-09-29] MEDS: IBUPROFEN 600 MG TAB PO SCH ×2 (06:39→12:37)
[2018-09-29] MEDS: CEPHALEXIN 500 MG CAP PO SCH ×2 (06:39→12:37)
[2018-09-29 07:30] VITALS: BP 112/69; PULSE 66; RESP 17
[2018-09-29] MEDS ORDERED: DIPHTH/TET/ACEL PERTUSS (ADULT) 0.5 ML VIAL IM* ONE (09:00)
[2018-09-29] MEDS ORDERED: MEASLES,MUMPS,RUBELLA VACCINE INJ SC* ONE (09:00)
[2018-09-29] MEDS ORDERED: VARICELLA VACCINE LIVE/PF 1,350 UNIT/0.5 ML ML SC* ONE (09:00)
[2018-09-29] MEDS: MAGNESIUM HYDROXIDE 30ML CUP PO SCH (09:04)
[2018-09-29] MEDS: SENNA/DOCUSATE NA (8.6MG/50MG) TAB PO SCH (09:04)
--- NOTE | 2018-09-30 15:06 | DELSUM ---
Delivery Summary A-C Datetime Report Generated by CPN: 09/30/2018 15:06 DELIVERY PERSONNEL Oven Technician: Carline Flores MATERNAL INFORMATION Delivery Anesthesia: Epidural Medications in Delivery: Pitocin 30 units in LR 500 Delivery QBL (ml): 200 Placenta Cultured: No Maternal Complications: None LABOR SUMMARY EDC: 10/15/2018 00:00 No. Babies in Womb: 1 Attempted: No Labor Anesthesia: Epidural LABOR INFORMATION Reason for Induction: Not Applicable Onset of Labor: 09/26/2018 16:00 Complete Dilatation: 09/27/2018 09:31 Oxytocin: N/A Group B Beta Strep: UNKNOWN Antibiotics # of Doses: Ampicillin 2 gm x 1 Antibiotics Time of Last Dose: 09/27/2018 08:16 Steroids Given: None Reason Steroids Not Administered: Not Applicable MEMBRANES Membranes Rupture Method: Spontaneous Rupture of Membranes: 09/27/2018 08:14 Length of Rupture (hr): 1.60 Amniotic Fluid Color: Clear Amniotic Fluid Amount: Moderate Amniotic Fluid Odor: None STAGES OF LABOR Stage 1 hr: 17 Stage 1 min: 31 Stage 2 hr: 0 Stage 2 min: 19 Stage 3 hr: 0 Stage 3 min: 3 Total Time in Labor hr: 17 Total Time in Labor min: 53 VAGINAL DELIVERY Episiotomy: None Laceration Extension: N/A Laceration Type: None Laceration Repair: Not Applicable Initial Vag Sponge Count: 10 Final Vag Sponge Count: 10 Initial Vag Sharps Count: 1 Final Vag Sharps Count: 1 Sponge Count Correct: Yes Sharps Count Correct: Yes BABY A INFORMATION Infant Delivery Date/Time: 09/27/2018 09:50 Method of Delivery: Vaginal Born in Route : No : N/A Forceps: N/A Vacuum Extraction: N/A Shoulder Dystocia : No SHOULDER DYSTOCIA BABY A Infant Delivery Date/Time: 09/27/2018 09:50 PRESENTATION/POSITION BABY A Presentation: Cephalic Cephalic Presentation: Vertex Vertex Position: Left Occipital Anterior Breech Presentation: N/A PLACENTA INFORMATION BABY A Placenta Delivery Time : 09/27/2018 09:53 Placenta Method of Delivery: Spontaneous Placenta Status: Delivered SCORES BABY A Heart Rate 1 min: >100 bpm Resp Effort 1 min: Good Cry Reflex Irritability 1 min: Cough/Sneeze/Pulls Away Muscle Tone 1 min: Active Motion Color 1 min: Body [place], Extremit Blue Resuscitation Effort 1 min: Tactile Stimulation SCORE 1 MIN: 9 Heart Rate 5 min: >100 bpm Resp Effort 5 min: Good Cry Reflex Irritability 5 min: Cough/Sneeze/Pulls Away Muscle Tone 5 min: Active Motion Color 5 min: Body [place], Extremit Blue Resuscitation Effort 5 min: Tactile Stimulation SCORE 5 MIN: 9 INFORMATION BABY A Gestational Age at Delivery: 37.3 Gestational Status: Early Term- 37- 38.6 Weeks Outcome : Liveborn Infant Condition : Stable Infant Sex: Female IDENTIFICATION/MEDS BABY A ID Band Number: [id number] ID Band Location: Right Leg; Left Arm Sensor Applied: Yes Sensor Number: [id number] Sensor Location : Cord Clamp Vitamin K Given : Not Given Erythromycin Given: Not Given WEIGHT/LENGTH BABY A Birthweight (gm): 3390 Weight (lb): 7 Infant Weight (oz): 8 Infant Length (in): 19.50 Length (cm): 49.53 CORD INFORMATION BABY A No. Cord Vessels: 3 Nuchal Cord : N/A Cord Blood Taken: Yes Suction: Mouth; Nose ASSESSMENT BABY A Infant Complications: None Physical Findings at Delivery: Within Normal Limits Infant Respirations: Appears Normal Lab Director/ALS Called : No Infant Care By: Brittany JAMES Transferred To: Remains with Mother
== END 2018-09-29 15:06 | disposition home or self-care (01) | DRG 807 ==
LOC: OBT 05:11 → L-D 05:12 → OBT 06:40 → L-D 06:40 → PP1 12:57
PROVIDERS: ADMIT Obstetrics & Gynecology; ATTEND Obstetrics & Gynecology
PROC: 10E0XZZ Delivery of Products of Conception, External Approach (ICD-10-PCS; principal; 2018-09-27)
DX: O80 Encounter for full-term uncomplicated delivery (principal); Z37.0 Single live birth; Z3A.37 37 weeks gestation of pregnancy
CPT/HCPCS: 62319; 81001; 84112; 85025; 85610; 85730; 86592; 86850; 86900; 86901; 87086; 87340; 90716; G0463; J0290; J1885; J2590; J3010; J7120

== ENCOUNTER 2018-11-11 12:50 | Emergency (ER) | payer MEDICAID ==
[~2018-11-11] VITALS: Ht 162.6 cm; Wt 77.8 kg
[~2018-11-11 12:50] MED LIST changes: +IBUP-1542 PO
[2018-11-11 12:52] VITALS: RESP 20; Ht 162.6 cm; Wt 77.8 kg
[2018-11-11] MEDS ORDERED: ONDANSETRON (ODT) 4 MG TAB ODT STA (13:39)
[2018-11-11] MEDS ORDERED: HYDROCODONE/APAP (5/325) TAB PO ONE (14:00)
[2018-11-11] MEDS ORDERED: ACET500C5 PO (15:37)
[2018-11-11] MEDS ORDERED: ONDA4TAB14 PO (15:37)
[2018-11-11 15:41] VITALS: BP 118/64; PULSE 72
--- NOTE | 2018-11-11 15:50 | ERD ---
ER Documentation Chief Complaint Chief Complaint RUQ abd pain x 2 days; denies vomiting HPI 23-year-old female patient with no significant past medical history presents ED complaining of right upper quadrant abdominal pain that started about 2 days ago. Patient describes her pain is achy and rates it as a 7 out of 10. States that her pain is worse when she eats. Denies any chest pain, shortness of breath, nausea, vomiting, diarrhea, neck stiffness, constipation, dysuria, urgency, frequency. Patient reports that she did have a vaginal delivery, few months ago however is not having any vaginal bleeding. ROS All systems reviewed and are negative except as per history of present illness. Medications Home Meds Active Scripts Ondansetron (Ondansetron Odt) 4 Mg Tab.rapdis, 4 MG PO Q6H PRN for NAUSEA AND/OR VOMITING, #10 TAB Prov:MARY BEAR PA-C 11/11/18 Acetaminophen* (Tylophen*) 500 Mg Capsule, 1 CAP PO Q6H PRN for PAIN AND OR ELEVATED TEMP, #20 CAP Prov:MARY BEAR PA-C 11/11/18 Ibuprofen* (Ibuprofen*) 600 Mg Tablet, 600 MG PO Q6, #60 TAB 0 Refills Prov:TIA VELOZ MD 09/28/18 Reported Medications Calcium Citrate* (Citracal*) 950 Mg Tab, 950 MG PO DAILY, TAB 09/12/18 Vit #76/Iron,Carb/FA (Pnv 29-1 Tablet) 1 Each Tablet, 1 EACH PO DAILY, TAB 09/04/18 Allergies Allergies: Coded Allergies: No Known Allergy (Unverified , 09/27/18) PMhx/Soc History of Surgery: No Anesthesia Reaction: No Hx Neurological Disorder: No Hx Respiratory Disorders: No Hx Cardiac Disorders: No Hx Psychiatric Problems: No Hx Miscellaneous Medical Probl: No Hx Alcohol Use: No Hx Substance Use: No Hx Tobacco Use: No FmHx Family History: No diabetes, No coronary disease Physical Exam Vitals Vital Signs Date Temp Pulse Resp B/P (MAP) Pulse Ox O2 O2 Flow FiO2 Time Delivery Rate 11/11/18 72 118/64 15:41 (82) 11/11/18 98.8 84 20 135/62 97 12:52 (86) Physical Exam Const: Ryn-sfa-akljdghik, well-nourished. In no acute distress. Head: Atraumatic, normocephalic Eyes: Normal Conjunctiva without injection. No purulent discharge. ENT: Normal external ear, nose. Moist oropharynx without tonsillar exudates. Non-erythematous pharynx. Uvula midline. No drooling. No trismus. Neck: No cervical midline tenderness. Full range of motion. No meningismus. No cervical lymphadenopathy. No JVD. Resp: Clear to auscultation bilaterally. No wheezing, rhonchi, rales, or crackles. No accessory muscle use. No retractions. Cardio: Regular rate and rhythm. No murmurs, rubs or gallops. Abd: Soft, right upper quadrant tenderness, non distended. Normal bowel sounds. No palpable masses. No rebound tenderness. No guarding. Negative McBurney's point. Negative psoas sign. Negative obturator sign. Skin: No petechiae or rashes Back: No midline tenderness. No CVA tenderness. Ext: No cyanosis, or edema. Neur: Awake and alert. Normal gait. Normal coordination. Psych: Normal Mood and Affect Result Diagram: 11/11/18 1350 11/11/18 1350 Results 24 hrs Laboratory Tests Test 11/11/18 13:50 White Blood Count 9.2 10^3/ul Red Blood Count 4.87 10^6/ul Hemoglobin 14.1 g/dl Hematocrit 43.6 % Mean Corpuscular Volume 89.5 fl Mean Corpuscular Hemoglobin 29.0 pg Mean Corpuscular Hemoglobin Concent 32.3 g/dl Red Cell Distribution Width 12.7 % Platelet Count 180 10^3/UL Mean Platelet Volume 12.4 fl Immature Granulocytes % 0.200 % Neutrophils % 74.7 % Lymphocytes % 20.2 % Monocytes % 4.2 % Eosinophils % 0.4 % Basophils % 0.3 % Nucleated Red Blood Cells % 0.0 /100WBC Immature Granulocytes # 0.020 10^3/ul Neutrophils # 6.9 10^3/ul Lymphocytes # 1.9 10^3/ul Monocytes # 0.4 10^3/ul Eosinophils # 0.0 10^3/ul Basophils # 0.0 10^3/ul Nucleated Red Blood Cells # 0.0 10^3/ul Urine Color YELLOW Urine Clarity SLIGHTLY CLOUDY Urine pH 6.0 Urine Specific [place] 1.025 Urine Ketones 2+ mg/dL Urine Nitrite NEGATIVE mg/dL Urine Bilirubin NEGATIVE mg/dL Urine Urobilinogen NEGATIVE mg/dL Urine Leukocyte Esterase NEGATIVE Brenda/ul Urine Microscopic RBC 0 /HPF Urine Microscopic WBC 5 /HPF Urine Squamous Epithelial Cells FEW /HPF Urine Bacteria FEW /HPF Urine Mucus MANY /HPF Urine Hemoglobin NEGATIVE mg/dL Urine Glucose NEGATIVE mg/dL Urine Total Protein NEGATIVE mg/dl Sodium Level 144 mmol/L Potassium Level 4.3 mmol/L Chloride Level 104 mmol/L Carbon Dioxide Level 26 mmol/L Anion Gap 14 Blood Urea Nitrogen 11 mg/dl Creatinine 0.66 mg/dl Est Glomerular Filtrat Rate mL/min > 60 mL/min Glucose Level 96 mg/dl Calcium Level 9.8 mg/dl Total Bilirubin 1.5 mg/dl Direct Bilirubin 0.00 mg/dl Indirect Bilirubin 1.5 mg/dl Aspartate Amino Transf (AST/SGOT) 28 IU/L Alanine Aminotransferase (ALT/SGPT) 29 IU/L Alkaline Phosphatase 91 IU/L Total Protein 8.5 g/dl Albumin 5.0 g/dl Globulin 3.50 g/dl Albumin/Globulin Ratio 1.42 Lipase 116 U/L POC Beta HCG, Qualitative NEGATIVE Current Medications Medications Dose Sig/Ami Start Time Status Last (Trade) Ordered Route PRN Stop Time Admin Dose Reason Admin 1 tab ONCE ONCE 11/11/18 DC 11/11/18 Acetaminophen PO 14:00 11/11/18 13:56 / 14:01 Hydrocodone Bitart ([place] (5/325)) Ondansetron 4 mg ONCE STAT 11/11/18 DC 11/11/18 HCl (Zofran ODT 13:39 11/11/18 13:55 Odt) 13:42 Procedures/MDM 23-year-old female patient with no significant past medical history presents ED complaining of right upper quadrant abdominal pain that started 2 days ago. Patient is afebrile and nontoxic-appearing. Patient was further worked up with CBC, CMP, lipase, UA, gallbladder ultrasound. Patient's pain and symptoms have improved after treatment with Tylenol, Zofran. CBC: No leukocytosis. No e/o of systemic infection. No e/o anemia. CMP: No e/o severe acidosis, alkalosis, renal failure, diabetic ketoacidosis, liver disease Lipase within normal limits. Urine: No leukocyte esterase, no nitrites, no hematuria. Urine : Negative IMPRESSION: Slightly heterogeneous and thickened endometrium . IMPRESSION: Cholelithiasis with a moderately distended gallbladder. Mild gallbladder wall thickening. No evidence of pericholecystic fluid. Patient has cholelithiasis. No leukocytosis. No transaminitis. Low suspicion for ectopic , ovarian torsion, gastritis, GERD, peptic ulcer disease, cholecystitis, choledocholithiasis, cholangitis, pancreatitis, appendicitis, bowel obstruction, ileus, volvulus, nephrolithiasis, pyelonephritis, hepatitis, perforated viscus, diverticulitis, strangulated/incarcerated hernia, DKA, acute abdomen, mesenteric ischemia or other emergent conditions. Discussed with Dr. Liao, my supervising physician who agreed with the management and discharge plan. Diagnosis: Gallstones Discharge medications: Zofran, Tylenol Follow up with primary care physician in 1-2 days for referral to feed miller. Instructed patient to return to the ED sooner for any worsening symptoms. Patient's questions were answered. Patient understood and agreed with discharge plan. Patient discharged stable. Departure Diagnosis: Primary Impression: Gallstones Condition: Stable Patient Instructions: Gallstones Referrals: [facility] YOU HAVE RECEIVED A MEDICAL SCREENING EXAM AND THE RESULTS INDICATE THAT YOU DO NOT HAVE A CONDITION THAT REQUIRES URGENT TREATMENT IN THE EMERGENCY DEPARTMENT. FURTHER EVALUATION AND TREATMENT OF YOUR CONDITION CAN WAIT UNTIL YOU ARE SEEN IN YOUR DOCTORS OFFICE WITHIN THE NEXT 1-2 DAYS. IT IS YOUR RESPONSIBILITY TO MAKE AN APPOINTMENT FOR FOLOW-UP CARE. IF YOU HAVE A PRIMARY DOCTOR --you should call your primary doctor and schedule an appointment IF YOU DO NOT HAVE A PRIMARY DOCTOR YOU CAN CALL OUR PHYSICIAN REFERRAL HOTLINE AT IF YOU CAN NOT AFFORD TO SEE A PHYSICIAN YOU CAN CHOSE FROM THE FOLLOWING [facility] [address] [facility]. [facility] [address] [facility] [address] [facility] [address] [facility] [address] [facility]. [facility] [address] [facility]. [facility] YOU HAVE RECEIVED A MEDICAL SCREENING EXAM AND THE RESULTS INDICATE THAT YOU DO NOT HAVE A CONDITION THAT REQUIRES URGENT TREATMENT IN THE EMERGENCY DEPARTMENT. FURTHER EVALUATION AND TREATMENT OF YOUR CONDITION CAN WAIT UNTIL YOU ARE SEEN IN YOUR DOCTORS OFFICE WITHIN THE NEXT 1-2 DAYS. IT IS YOUR RESPONSIBILITY TO MAKE AN APPOINTMENT FOR FOLOW-UP CARE. IF YOU HAVE A PRIMARY DOCTOR --you should call your primary doctor and schedule and appointment IF YOU DO NOT HAVE A PRIMARY DOCTOR YOU CAN CALL OUR PHYSICIAN REFERRAL HOTLINE AT . IF YOU CAN NOT AFFORD TO SEE A PHYSICIAN YOU CAN CHOSE FROM THE FOLLOWING [facility] INSTITUTIONS: [facility] [address] [place] [address] [facility] [address] [place], [place] [id number] [place] [address] [address] [place] [address] [facility]CIALT[facility] Additional Instructions: Call your primary care doctor TOMORROW for an appointment during the next 2-3 days.See the doctor sooner or return here if your condition worsens before your appointment time. MARY BEAR PA-C November 11, 2018 15:50
== END 2018-11-11 15:43 | disposition home or self-care (01) ==
LOC: FTE 12:50
DX: K80.20 Calculus of gallbladder without cholecystitis without obstruction (principal)
CPT/HCPCS: 36415; 76705; 76830; 76856; 80053; 81001; 81003; 81025; 83690; 85025; Z7502; Z7610